=== PATIENT | female | born 1930 | race African-American/Black ===

== ENCOUNTER 2019-04-18 12:34 | Emergency (ER) | payer OTHER ==
[~2019-04-18] VITALS: Ht 152.4 cm; Wt 58.1 kg
[~2019-04-18 12:34] MED LIST: ARICEPT5 MG; BISOPROLOL-HCTZ1 TA1; LOTREL 5-20 MG1 CAP; NAMENDA10 MG; ZANTAC300 MG
[2019-04-18] MEDS ORDERED: EXCILON1 EAC2 (13:03)
[2019-04-18] MEDS ORDERED: CELEBREX50 MG (13:03)
== END 2019-04-18 18:28 | disposition home or self-care (01) ==
LOC: ER 12:34
DX: I82.432 Acute embolism and thrombosis of left popliteal vein (principal)